=== PATIENT | male | born 1935 | race African-American/Black ===

== ENCOUNTER 2021-03-13 09:15 | Inpatient (IN) | payer MEDICARE, OTHER ==
[~2021-03-13] VITALS: Ht 175.3 cm; Wt 91.2 kg
[~2021-03-13 09:15] MED LIST: ASPI-1497 PO; ATEN50TA PO; GLYPIZIDE PO; LOSA50TA41 PO; METF-414 PO; RANI150T7 PO; REPA0.5T5 PO; hctz PO; mvi PO
[2021-03-13 10:23] LABS: BASOPHILS % 0.4 % (0.0-2.0); EOSINOPHILS % 3.8 % (0.0-5.0); HEMATOCRIT. 39.2 % (42.0-52.0); LYMPHOCYTES % 31.8 % (20.0-50.0); MEAN CORPUSCULAR HEMOGLOBIN 29.3 pg (28.0-32.0); MEAN CORPUSCULAR VOLUME 88.4 fL (80.0-94.0); MEAN PLATELET VOLUME 7.6 fl (7.4-10.4); MONOCYTES % 11.2 % (2.0-8.0); NEUTROPHILS % 52.8 % (40.0-76.0); PLATELET 186 x1000/uL (130-400); RED BLOOD CELL COUNT 4.44 mill/uL (4.7-6.1); RED CELL DISTRIBUTION WIDTH 15.6 % (11.6-14.6)
[2021-03-13 10:31] LABS: CHLORIDE 106 mEq/L (98-107)
[2021-03-13 10:32] LABS: PROTHROMBIN TIME 10.4 sec (9.6-11.0)
[2021-03-13 10:35] LABS: ETHANOL BLOOD < 10 mg/dL
[2021-03-13 10:38] LABS: LDL CHOLESTEROL 76 mg/dL (5-100)
[2021-03-13 10:51] LABS: CREATINE KINASE 3532 IU/L (39-308)
[2021-03-13] MEDS ORDERED: IOHEXOL-350 100 ML BOTTLE ONE (10:54)
[2021-03-13] MEDS ORDERED: SODIUM CHLORIDE 0.9% 1,000 ML IV ONE (11:00)
[2021-03-13] MEDS: ASPIRIN 325MG EC TABLET PO NR ×2 (11:17→11:39)
[2021-03-13] MEDS ORDERED: ATORVASTATIN CALCIUM 40MG TABLET PO ONE (11:30)
[2021-03-13 16:00] VITALS: BP 162/90
[2021-03-13 16:15] VITALS: BP 164/92
[2021-03-13 16:46] LABS: CLARITY URINE CLEAR (CLEAR); COLOR URINE YELLOW (YELLOW); KETONES URINE NEGATIVE (NEGATIVE); LEUKOCYTE ESTERASE URINE NEGATIVE (NEGATIVE); NITRITE URINE NEGATIVE (NEGATIVE); OCCULT BLOOD URINE NEGATIVE (NEGATIVE); PH URINE 7.5 (4.5-8.0); PROTEIN URINE NEGATIVE (NEGATIVE)
[2021-03-13 17:03] LABS: *AMPHETAMINES SCREEN URINE NEGATIVE (NEGATIVE); *BARBITURATES SCREEN URINE NEGATIVE (NEGATIVE); *BENZODIAZEPINES SCREEN URINE NEGATIVE (NEGATIVE)
[2021-03-13 17:04] LABS: *COCAINE SCREEN URINE NEGATIVE (NEGATIVE); CANNABINOID URINE SCREEN NEGATIVE (NEGATIVE); METHADONE URINE SCREEN NEGATIVE (NEGATIVE); OPIATES URINE SCREEN NEGATIVE (NEGATIVE); PHENCYCLIDINE URINE SCREEN NEGATIVE (NEGATIVE)
[2021-03-13] MEDS ORDERED: MORPHINE SULFATE 2 MG/ML CPJ (NOT FOR IM USE) IV PRN (17:30)
[2021-03-13] MEDS ORDERED: DIPHENHYDRAMINE 50MG/ML VIAL IV PRN (17:30)
[2021-03-13] MEDS ORDERED: LORAZEPAM 2MG/ML CPJ IV PRN (17:30)
[2021-03-13] MEDS ORDERED: DOCUSATE SODIUM 100MG CAPSULE PO PRN (17:30)
[2021-03-13] MEDS ORDERED: ACETAMINOPHEN 325MG TABLET PO PRN (17:30)
[2021-03-13] MEDS ORDERED: MAGNESIUM/ALUMINUM HYDROXIDE/SIMETHICONE 30ML UDC PO PRN (17:30)
[2021-03-13] MEDS ORDERED: DEXTROSE 50% WATER 50ML SYRINGE IV PRN (17:30)
[2021-03-13] MEDS ORDERED: IPRATROPIUM/ALBUTEROL 0.5-3(2.5)MG/3ML NEB HHN PRN (17:30)
[2021-03-13] MEDS ORDERED: GUAIFENESIN 200MG/10ML SUGAR FREE UDC PO PRN (17:30)
[2021-03-13] MEDS ORDERED: ONDANSETRON HCL 4MG/2ML INJ IV PRN (17:30)
[2021-03-13] MEDS ORDERED: HYDROCODONE/ACETAMINOPHEN 5/325MG TABLET PO PRN (17:30)
[2021-03-13] MEDS: INSULIN LISPRO 100 UNITS/ML SUBCUT SCH ×2 (17:40→20:26)
[2021-03-13] MEDS: HYDRALAZINE 20MG/ML VIAL IV PRN (18:03)
[2021-03-13] MEDS: ENOXAPARIN 40MG/0.4ML SYR SUBCUT SCH (18:06)
[2021-03-13] MEDS: BLOOD SUGAR DIAGNOSTIC STRIP TEST SCH ×2 (18:13→20:24)
[2021-03-13] MEDS: DEXT 5%/0.45% NACL 1000ML 1,000 ML IV SCH (19:38)
[2021-03-13 20:00] VITALS: BP 112/76
[2021-03-13] MEDS ORDERED: ENOXAPARIN 40MG/0.4ML SYR SUBCUT SCH (20:00)
[2021-03-13] MEDS: ASPIRIN 81MG TABLET PO SCH (20:24)
[2021-03-13] MEDS: ATORVASTATIN CALCIUM 20MG TABLET PO SCH (20:24)
[2021-03-13] MEDS: SODIUM CHLORIDE 0.9% INJ 3ML FLUSH IVF SCH (20:26)
[2021-03-13] MEDS ORDERED: ATORVASTATIN CALCIUM 40MG TABLET PO SCH (21:00)
[2021-03-14] VITALS: BP 136/73
[2021-03-14 00:52] LABS: CREATINE KINASE MB FRACTION 6.1 ng/mL (0.5-3.6)
[2021-03-14 01:02] LABS: CREATINE KINASE 3546 IU/L (39-308)
[2021-03-14 04:00] VITALS: BP 139/89
[2021-03-14] MEDS: SODIUM CHLORIDE 0.9% INJ 3ML FLUSH IVF SCH ×3 (05:22→22:00)
[2021-03-14] MEDS: BLOOD SUGAR DIAGNOSTIC STRIP TEST SCH ×4 (05:24→20:02)
[2021-03-14] MEDS: INSULIN LISPRO 100 UNITS/ML SUBCUT SCH ×4 (05:24→21:28)
[2021-03-14 07:08] LABS: BASOPHILS % 0.4 % (0.0-2.0); EOSINOPHILS % 1.3 % (0.0-5.0); HEMATOCRIT. 44.2 % (42.0-52.0); HEMOGLOBIN. 14.4 g/dL (14.0-18.0); LYMPHOCYTES % 23.9 % (20.0-50.0); MEAN CORPUSCULAR HEMOGLOBIN 28.7 pg (28.0-32.0); MEAN PLATELET VOLUME 8.4 fl (7.4-10.4); NEUTROPHILS % 63.4 % (40.0-76.0); PLATELET 190 x1000/uL (130-400); RED BLOOD CELL COUNT 5.02 mill/uL (4.7-6.1); RED CELL DISTRIBUTION WIDTH 15.3 % (11.6-14.6)
[2021-03-14 07:22] LABS: CHLORIDE 104 mEq/L (98-107)
[2021-03-14 07:38] LABS: LDL CHOLESTEROL 79 mg/dL (5-100)
[2021-03-14 07:47] LABS: CREATINE KINASE MB FRACTION 5.7 ng/mL (0.5-3.6)
[2021-03-14 07:48] LABS: HDL CHOLESTEROL 88 mg/dL (40-59)
[2021-03-14 07:51] LABS: CREATINE KINASE 3394 IU/L (39-308)
[2021-03-14 08:00] VITALS: BP 141/86
[2021-03-14] MEDS: ASPIRIN 81MG TABLET PO SCH (08:42)
[2021-03-14 12:00] VITALS: BP 133/68
[2021-03-14 16:00] VITALS: BP 166/91
[2021-03-14] MEDS: DEXT 5%/0.45% NACL 1000ML 1,000 ML IV SCH ×3 (17:30→19:51)
[2021-03-14] MEDS: CLONIDINE 0.1MG TABLET PO PRN (17:56)
[2021-03-14] MEDS: ENOXAPARIN 40MG/0.4ML SYR SUBCUT SCH (17:56)
[2021-03-14 20:00] VITALS: BP 127/80
[2021-03-14] MEDS: ATORVASTATIN CALCIUM 20MG TABLET PO SCH (21:28)
[2021-03-15] VITALS: BP 130/66
[2021-03-15 04:00] VITALS: BP 130/60
[2021-03-15] MEDS: SODIUM CHLORIDE 0.9% INJ 3ML FLUSH IVF SCH ×3 (05:23→20:27)
[2021-03-15] MEDS: BLOOD SUGAR DIAGNOSTIC STRIP TEST SCH ×4 (05:26→20:26)
[2021-03-15] MEDS: INSULIN LISPRO 100 UNITS/ML SUBCUT SCH ×4 (05:51→20:26)
[2021-03-15 06:11] LABS: CHLORIDE 107 mEq/L (98-107)
[2021-03-15 06:34] LABS: CREATINE KINASE 1493 IU/L (39-308)
[2021-03-15] MEDS ORDERED: LIDOCAINE HCL 1% 20ML VIAL (Pyxis) INJ ONE (08:11)
[2021-03-15 08:20] LABS: BASOPHILS % 0.5 % (0.0-2.0); EOSINOPHILS % 4.6 % (0.0-5.0); HEMATOCRIT. 38.1 % (42.0-52.0); HEMOGLOBIN. 12.6 g/dL (14.0-18.0); LYMPHOCYTES % 34.3 % (20.0-50.0); MEAN CORPUSCULAR HEMOGLOBIN 28.9 pg (28.0-32.0); MEAN CORPUSCULAR VOLUME 87.7 fL (80.0-94.0); MEAN PLATELET VOLUME 8.2 fl (7.4-10.4); MONOCYTES % 13.5 % (2.0-8.0); NEUTROPHILS % 47.1 % (40.0-76.0); PLATELET 182 x1000/uL (130-400); RED BLOOD CELL COUNT 4.34 mill/uL (4.7-6.1); RED CELL DISTRIBUTION WIDTH 15.5 % (11.6-14.6)
[2021-03-15] MEDS: ASPIRIN 81MG TABLET PO SCH (09:54)
[2021-03-15] MEDS: ENOXAPARIN 40MG/0.4ML SYR SUBCUT SCH (18:36)
[2021-03-15 20:00] VITALS: BP 126/76
[2021-03-15] MEDS: ATORVASTATIN CALCIUM 20MG TABLET PO SCH (20:26)
[2021-03-16] VITALS: BP 127/70
[2021-03-16] MEDS: SODIUM CHLORIDE 0.9% INJ 3ML FLUSH IVF SCH (06:00)
[2021-03-16 06:47] LABS: CHLORIDE 108 mEq/L (98-107)
[2021-03-16 07:06] LABS: BASOPHILS % 0.4 % (0.0-2.0); EOSINOPHILS % 5.3 % (0.0-5.0); HEMATOCRIT. 40.6 % (42.0-52.0); HEMOGLOBIN. 13.3 g/dL (14.0-18.0); LYMPHOCYTES % 26.8 % (20.0-50.0); MEAN CORPUSCULAR HEMOGLOBIN 28.4 pg (28.0-32.0); MEAN PLATELET VOLUME 7.7 fl (7.4-10.4); NEUTROPHILS % 54.5 % (40.0-76.0); PLATELET 195 x1000/uL (130-400); RED BLOOD CELL COUNT 4.67 mill/uL (4.7-6.1); RED CELL DISTRIBUTION WIDTH 15.5 % (11.6-14.6)
[2021-03-16] MEDS: INSULIN LISPRO 100 UNITS/ML SUBCUT SCH ×4 (07:40→20:52)
[2021-03-16] MEDS: BLOOD SUGAR DIAGNOSTIC STRIP TEST SCH ×4 (07:43→20:43)
[2021-03-16 08:00] VITALS: BP 148/83
[2021-03-16] MEDS: ASPIRIN 81MG TABLET PO SCH (09:56)
[2021-03-16] MEDS: ENOXAPARIN 30MG/0.3ML SYR SUBCUT SCH ×2 (09:57→20:42)
[2021-03-16 12:00] VITALS: BP 137/87
[2021-03-16 16:00] VITALS: BP 170/100
[2021-03-16] MEDS: DEXT 5%/0.45% NACL 1000ML 1,000 ML IV SCH (17:30)
[2021-03-16] MEDS: CLOPIDOGREL 75MG TABLET PO SCH (18:22)
[2021-03-16] MEDS: CLONIDINE 0.1MG TABLET PO PRN (18:22)
[2021-03-16 20:00] VITALS: BP 175/100
[2021-03-16] MEDS: ATORVASTATIN CALCIUM 20MG TABLET PO SCH (20:41)
[2021-03-16] MEDS: HYDRALAZINE 20MG/ML VIAL IV PRN (22:32)
[2021-03-17] VITALS: BP 140/82
[2021-03-17 04:00] VITALS: BP 151/89
[2021-03-17] MEDS: SODIUM CHLORIDE 0.9% INJ 3ML FLUSH IVF SCH ×3 (06:00→21:30)
[2021-03-17] MEDS: BLOOD SUGAR DIAGNOSTIC STRIP TEST SCH ×3 (07:10→21:29)
[2021-03-17 08:00] VITALS: BP 147/75
[2021-03-17] MEDS: INSULIN LISPRO 100 UNITS/ML SUBCUT SCH ×4 (09:08→21:31)
[2021-03-17] MEDS: CLOPIDOGREL 75MG TABLET PO SCH (09:09)
[2021-03-17] MEDS: ENOXAPARIN 30MG/0.3ML SYR SUBCUT SCH ×2 (09:09→21:30)
[2021-03-17 12:00] VITALS: BP 159/82
[2021-03-17 16:00] VITALS: BP 137/77
[2021-03-17 20:00] VITALS: BP 158/84
[2021-03-17] MEDS: ATORVASTATIN CALCIUM 20MG TABLET PO SCH (21:29)
[2021-03-17] MEDS: METOPROLOL TARTRATE 25MG TABLET PO SCH (21:30)
[2021-03-18] VITALS: BP 151/85
[2021-03-18] MEDS: DEXT 5%/0.45% NACL 1000ML 1,000 ML IV SCH ×2 (03:07→18:43)
[2021-03-18 04:00] VITALS: BP 162/78
[2021-03-18 06:04] LABS: BASOPHILS % 0.6 % (0.0-2.0); EOSINOPHILS % 7.6 % (0.0-5.0); HEMATOCRIT. 45.4 % (42.0-52.0); HEMOGLOBIN. 14.7 g/dL (14.0-18.0); LYMPHOCYTES % 34.7 % (20.0-50.0); MEAN CORPUSCULAR HEMOGLOBIN 28.8 pg (28.0-32.0); MEAN CORPUSCULAR VOLUME 88.8 fL (80.0-94.0); MEAN PLATELET VOLUME 7.8 fl (7.4-10.4); MONOCYTES % 11.3 % (2.0-8.0); NEUTROPHILS % 45.8 % (40.0-76.0); PLATELET 202 x1000/uL (130-400); RED BLOOD CELL COUNT 5.11 mill/uL (4.7-6.1); RED CELL DISTRIBUTION WIDTH 15.8 % (11.6-14.6)
[2021-03-18] MEDS: SODIUM CHLORIDE 0.9% INJ 3ML FLUSH IVF SCH ×3 (06:08→21:12)
[2021-03-18] MEDS: BLOOD SUGAR DIAGNOSTIC STRIP TEST SCH ×4 (06:09→21:05)
[2021-03-18] MEDS: INSULIN LISPRO 100 UNITS/ML SUBCUT SCH ×4 (06:09→21:05)
[2021-03-18 06:30] LABS: CHLORIDE 106 mEq/L (98-107)
[2021-03-18] MEDS: CLOPIDOGREL 75MG TABLET PO SCH (09:33)
[2021-03-18] MEDS: METOPROLOL TARTRATE 25MG TABLET PO SCH ×2 (09:34→21:04)
[2021-03-18] MEDS: ENOXAPARIN 30MG/0.3ML SYR SUBCUT SCH ×2 (09:34→21:04)
[2021-03-18 12:00] VITALS: BP 149/78
[2021-03-18 16:00] VITALS: BP 124/81
[2021-03-18] MEDS ORDERED: CLOP75TA15 PO (18:56)
[2021-03-18 18:59] VITALS: BP 124/81
[2021-03-18 20:00] VITALS: BP 150/89
[2021-03-18] MEDS: ATORVASTATIN CALCIUM 20MG TABLET PO SCH (21:03)
[2021-03-19] VITALS: BP 152/70
[2021-03-19 04:00] VITALS: BP 150/89
[2021-03-19] MEDS: SODIUM CHLORIDE 0.9% INJ 3ML FLUSH IVF SCH ×2 (05:59→14:00)
[2021-03-19] MEDS: INSULIN LISPRO 100 UNITS/ML SUBCUT SCH ×3 (06:18→17:40)
[2021-03-19] MEDS: BLOOD SUGAR DIAGNOSTIC STRIP TEST SCH ×3 (06:18→17:10)
[2021-03-19 08:00] VITALS: BP 152/97
[2021-03-19] MEDS: CLOPIDOGREL 75MG TABLET PO SCH (08:42)
[2021-03-19] MEDS: METOPROLOL TARTRATE 25MG TABLET PO SCH (08:42)
[2021-03-19] MEDS: ENOXAPARIN 30MG/0.3ML SYR SUBCUT SCH (08:42)
[2021-03-20] MEDS ORDERED: ENOXAPARIN 40MG/0.4ML SYR SUBCUT SCH (09:00)
== END 2021-03-19 18:00 | DRG 64 ==
LOC: ER 09:15 → 8WST 12:02 → EDBEDREQ 12:12 → EDBEDREQSVC 12:12 → EDBEDREQTM 12:12 → ENRESERV 13:12
PROVIDERS: ADMIT Internal Medicine; ATTEND Internal Medicine
PROC: 4A10X4Z Monitoring of Central Nervous Electrical Activity, External Approach (ICD-10-PCS; principal; 2021-03-14)
PROC: 05HY33Z Insertion of Infusion Device into Upper Vein, Percutaneous Approach (ICD-10-PCS; 2021-03-15)
PROC: B54MZZA Ultrasonography of Right Upper Extremity Veins, Guidance (ICD-10-PCS; 2021-03-15)
DX: I63.9 Cerebral infarction, unspecified (principal); J96.00 Acute respiratory failure, unspecified whether with hypoxia or hypercapnia; M62.82 Rhabdomyolysis; F03.90 Unspecified dementia, unspecified severity, without behavioral disturbance, psychotic disturbance, mood disturbance, and anxiety; E11.22 Type 2 diabetes mellitus with diabetic chronic kidney disease; N18.9 Chronic kidney disease, unspecified; I12.9 Hypertensive chronic kidney disease with stage 1 through stage 4 chronic kidney disease, or unspecified chronic kidney disease; E66.01 Morbid (severe) obesity due to excess calories; E87.5 Hyperkalemia; G89.29 Other chronic pain; R29.810 Facial weakness; C61 Malignant neoplasm of prostate; Z85.46 Personal history of malignant neoplasm of prostate; Z79.82 Long term (current) use of aspirin; Z79.899 Other long term (current) drug therapy; Z82.49 Family history of ischemic heart disease and other diseases of the circulatory system; Z68.29 Body mass index [BMI] 29.0-29.9, adult; W06.XXXA Fall from bed, initial encounter; Y92.009 Unspecified place in unspecified non-institutional (private) residence as the place of occurrence of the external cause
CPT/HCPCS: 36415; 36573; 70496; 70498; 70551; 71045; 80048; 80053; 80061; 80305; 80320; 81003; 82140; 82550; 82553; 82962; 83036; 83721; 83880; 84443; 84484; 85025; 92610; 93005; 93306; 93970; 95816; 97112; 97162; 97166; 97530; 97535; 99291; C1725; C1893; J0360; J1650; J1815; J3490; Q9967; G0480

== ENCOUNTER 2021-05-15 08:48 | Emergency (ER) | payer SELFPAY ==
[~2021-05-15] VITALS: Ht 172.7 cm; Wt 86.0 kg
[2021-05-15 09:41] LABS: BASOPHILS % 0.6 % (0.0-2.0); EOSINOPHILS % 0.9 % (0.0-5.0); HEMATOCRIT. 38.6 % (42.0-52.0); HEMOGLOBIN. 12.7 g/dL (14.0-18.0); MEAN CORPUSCULAR HEMOGLOBIN 28.2 pg (28.0-32.0); MEAN CORPUSCULAR VOLUME 85.8 fL (80.0-94.0); MEAN PLATELET VOLUME 6.9 fl (7.4-10.4); MONOCYTES % 7.1 % (2.0-8.0); NEUTROPHILS % 78.4 % (40.0-76.0); PLATELET 235 x1000/uL (130-400); RED CELL DISTRIBUTION WIDTH 15.2 % (11.6-14.6)
[2021-05-15 09:50] LABS: CHLORIDE 108 mEq/L (98-107)
[2021-05-15] MEDS ORDERED: DEXTROSE 50% WATER 50ML SYRINGE IV ONE (10:00)
[2021-05-15 10:18] LABS: CLARITY URINE CLEAR (CLEAR); COLOR URINE YELLOW (YELLOW); KETONES URINE NEGATIVE (NEGATIVE); LEUKOCYTE ESTERASE URINE NEGATIVE (NEGATIVE); NITRITE URINE NEGATIVE (NEGATIVE); OCCULT BLOOD URINE NEGATIVE (NEGATIVE); PROTEIN URINE NEGATIVE (NEGATIVE); SPECIFIC GRAVITY URINE 1.004 (1.005-1.030); UROBILINOGEN URINE 0.2 E.U./dL (0.2-1.0)
[2021-05-15] MEDS ORDERED: CLONIDINE 0.1MG TABLET PO ONE (11:30)
[2021-05-15] MEDS ORDERED: ALBU90AE INH (12:17)
[2021-05-15 13:55] VITALS: BP 162/88
== END 2021-05-15 14:05 | disposition home or self-care (01) ==
LOC: ER 08:48
DX: E11.649 Type 2 diabetes mellitus with hypoglycemia without coma (principal); J40 Bronchitis, not specified as acute or chronic; I10 Essential (primary) hypertension; F03.90 Unspecified dementia, unspecified severity, without behavioral disturbance, psychotic disturbance, mood disturbance, and anxiety; I69.351 Hemiplegia and hemiparesis following cerebral infarction affecting right dominant side; Z79.84 Long term (current) use of oral hypoglycemic drugs; Z79.82 Long term (current) use of aspirin
CPT/HCPCS: 36415; 71045; 80053; 81003; 82962; 83880; 84484; 85025; 93005; 96374; 99285; A4315

== ENCOUNTER 2021-09-20 11:19 | Inpatient (IN) | payer MEDICARE, OTHER ==
[~2021-09-20] VITALS: Ht 175.3 cm; Wt 68.1 kg
[~2021-09-20 11:19] MED LIST changes: +ALBU90AE INH
[2021-09-20 12:36] LABS: HEMATOCRIT. 39.1 % (42.0-52.0); HEMOGLOBIN. 12.4 g/dL (14.0-18.0); MEAN CORPUSCULAR HEMOGLOBIN 27.3 pg (28.0-32.0); MEAN CORPUSCULAR VOLUME 86.2 fL (80.0-94.0); MEAN PLATELET VOLUME 7.3 fl (7.4-10.4); PLATELET 216 x1000/uL (130-400); RED BLOOD CELL COUNT 4.54 mill/uL (4.7-6.1); RED CELL DISTRIBUTION WIDTH 15.9 % (11.6-14.6)
[2021-09-20 12:42] LABS: CHLORIDE 103 mEq/L (98-107)
[2021-09-20 12:45] LABS: INR 1.1; PROTHROMBIN TIME 11.3 sec (9.6-11.0)
[2021-09-20 12:46] LABS: ETHANOL BLOOD < 10 mg/dL
[2021-09-20 12:49] LABS: LDL CHOLESTEROL 34 mg/dL (5-100)
[2021-09-20 13:12] LABS: PLATELET ESTIMATE NORMAL
[2021-09-20] MEDS ORDERED: IOHEXOL-350 100 ML BOTTLE ONE (13:57)
[2021-09-20] MEDS ORDERED: ONDANSETRON HCL 4MG/2ML INJ IV PRN (16:45)
[2021-09-20] MEDS ORDERED: DIPHENHYDRAMINE 50MG/ML VIAL IV PRN (16:45)
[2021-09-20] MEDS ORDERED: IPRATROPIUM/ALBUTEROL 0.5-3(2.5)MG/3ML NEB HHN PRN (16:45)
[2021-09-20] MEDS: SODIUM CHLORIDE 0.9% 1,000 ML IV SCH (16:45)
[2021-09-20 23:45] VITALS: BP 161/84
[2021-09-21] VITALS (7 sets, daily range): BP systolic 112–166; BP diastolic 71–93
[2021-09-21] MEDS ORDERED: CLOP75TA33 PO (00:11)
[2021-09-21] MEDS ORDERED: AMLO5TAB88 PO (00:11)
[2021-09-21] MEDS ORDERED: MEMA10TA55 PO (00:11)
[2021-09-21] MEDS ORDERED: ATOR20TA65 PO (00:11)
[2021-09-21] MEDS ORDERED: DEXTROSE 50% WATER 50ML SYRINGE IV PRN (01:30)
[2021-09-21] MEDS: CLONIDINE 0.1MG TABLET PO PRN (05:08)
[2021-09-21] MEDS: SODIUM CHLORIDE 0.9% 1,000 ML IV SCH ×2 (05:08→21:11)
[2021-09-21] MEDS: BLOOD SUGAR DIAGNOSTIC STRIP TEST SCH ×4 (05:57→21:00)
[2021-09-21] MEDS: INSULIN LISPRO 100 UNITS/ML SUBCUT SCH ×4 (06:43→23:16)
[2021-09-21 07:09] LABS: BASOPHILS % 0.3 % (0.0-2.0); HEMATOCRIT. 36.3 % (42.0-52.0); HEMOGLOBIN. 11.7 g/dL (14.0-18.0); LYMPHOCYTES % 8.4 % (20.0-50.0); MEAN CORPUSCULAR HEMOGLOBIN 27.9 pg (28.0-32.0); MEAN CORPUSCULAR VOLUME 86.4 fL (80.0-94.0); MEAN PLATELET VOLUME 7.7 fl (7.4-10.4); MONOCYTES % 6.8 % (2.0-8.0); NEUTROPHILS % 84.5 % (40.0-76.0); PLATELET 214 x1000/uL (130-400); RED CELL DISTRIBUTION WIDTH 15.6 % (11.6-14.6)
[2021-09-21 07:21] LABS: CHLORIDE 104 mEq/L (98-107)
[2021-09-21 07:45] LABS: HDL CHOLESTEROL 76 mg/dL (40-59); LDL CHOLESTEROL 25 mg/dL (5-100)
[2021-09-22] VITALS: BP 115/74
[2021-09-22 00:54] LABS: T4 FREE 1.09 ng/dL (0.76-1.46)
[2021-09-22 01:10] LABS: VITAMIN B12 SERUM 867 pg/mL (211-911)
[2021-09-22 01:16] LABS: FOLIC ACID (FOLATE) SERUM > 20.00 ng/mL (>5.38)
[2021-09-22 04:00] VITALS: BP 149/80
[2021-09-22 06:30] LABS: BASOPHILS % 0.1 % (0.0-2.0); EOSINOPHILS % 0.1 % (0.0-5.0); HEMATOCRIT. 36.4 % (42.0-52.0); HEMOGLOBIN. 11.6 g/dL (14.0-18.0); LYMPHOCYTES % 8.7 % (20.0-50.0); MEAN CORPUSCULAR HEMOGLOBIN 27.6 pg (28.0-32.0); MEAN CORPUSCULAR VOLUME 86.7 fL (80.0-94.0); MONOCYTES % 4.6 % (2.0-8.0); NEUTROPHILS % 86.5 % (40.0-76.0); RED CELL DISTRIBUTION WIDTH 16.3 % (11.6-14.6)
[2021-09-22] MEDS: BLOOD SUGAR DIAGNOSTIC STRIP TEST SCH ×4 (06:37→21:15)
[2021-09-22] MEDS: INSULIN LISPRO 100 UNITS/ML SUBCUT SCH ×4 (06:37→21:15)
[2021-09-22 07:02] LABS: CHLORIDE 110 mEq/L (98-107)
[2021-09-22 08:00] VITALS: BP 156/84
[2021-09-22] MEDS: CLOPIDOGREL 75MG TABLET PO SCH (09:24)
[2021-09-22 10:35] LABS: PLATELET 186 x1000/uL (130-400)
[2021-09-22] MEDS: SODIUM CHLORIDE 0.9% 1,000 ML IV SCH (10:46)
[2021-09-22 16:00] VITALS: BP 130/67
[2021-09-22 20:00] VITALS: BP 108/63
[2021-09-23] VITALS: BP 113/70
[2021-09-23 04:00] VITALS: BP 136/81
[2021-09-23] MEDS: SODIUM CHLORIDE 0.9% 1,000 ML IV SCH ×2 (04:32→12:20)
[2021-09-23] MEDS: BLOOD SUGAR DIAGNOSTIC STRIP TEST SCH ×4 (05:53→21:15)
[2021-09-23] MEDS: INSULIN LISPRO 100 UNITS/ML SUBCUT SCH ×4 (05:55→21:16)
[2021-09-23 08:00] VITALS: BP 136/76
[2021-09-23] MEDS: CLOPIDOGREL 75MG TABLET PO SCH (08:49)
[2021-09-23] MEDS: ACETAMINOPHEN 325MG TABLET PO PRN ×2 (09:47→21:15)
[2021-09-23 12:00] VITALS: BP_SYST 122; BP_SYST 171; BP_DIAS 66; BP_DIAS 84
[2021-09-23 16:00] VITALS: BP 145/70
[2021-09-23 20:00] VITALS: BP 113/80
[2021-09-24] VITALS (7 sets, daily range): BP systolic 133–165; BP diastolic 70–91
[2021-09-24] MEDS: BLOOD SUGAR DIAGNOSTIC STRIP TEST SCH ×4 (06:33→20:53)
[2021-09-24] MEDS: CLONIDINE 0.1MG TABLET PO PRN ×2 (06:35→18:22)
[2021-09-24] MEDS: INSULIN LISPRO 100 UNITS/ML SUBCUT SCH ×5 (06:36→20:58)
[2021-09-24 07:54] LABS: CREATINE KINASE 621 IU/L (39-308)
[2021-09-24] MEDS: THIAMINE HCL 100MG TABLET PO SCH (08:57)
[2021-09-24] MEDS: CLOPIDOGREL 75MG TABLET PO SCH (08:57)
[2021-09-24] MEDS: FOLIC ACID 1MG TABLET PO SCH (08:57)
[2021-09-24] MEDS: LACTULOSE 20G/30ML UDC PO SCH ×2 (14:03→20:53)
[2021-09-24] MEDS ORDERED: BARIUM SULFATE 176 GM SUSP.RECON ONE (14:10)
[2021-09-24] MEDS: ACETAMINOPHEN 325MG TABLET PO PRN (18:22)
[2021-09-24] MEDS: CEFTRIAXONE 1,000 MG in DEXTROSE 5% WATER 50 ML IV SCH (20:53)
[2021-09-25] VITALS: BP 164/71
[2021-09-25 04:00] VITALS: BP 157/75
[2021-09-25] MEDS: CLONIDINE 0.1MG TABLET PO PRN (04:41)
[2021-09-25 05:31] LABS: CLARITY URINE TURBID (CLEAR); COLOR URINE YELLOW (YELLOW); KETONES URINE TRACE (NEGATIVE); LEUKOCYTE ESTERASE URINE 3+ (NEGATIVE); NITRITE URINE POSITIVE (NEGATIVE); OCCULT BLOOD URINE 2+ (NEGATIVE); PROTEIN URINE 1+ (NEGATIVE); SPECIFIC GRAVITY URINE 1.013 (1.005-1.030)
[2021-09-25] MEDS: LACTULOSE 20G/30ML UDC PO SCH ×2 (06:07→14:14)
[2021-09-25] MEDS: BLOOD SUGAR DIAGNOSTIC STRIP TEST SCH ×4 (06:07→20:43)
[2021-09-25 07:43] LABS: CHLORIDE 111 mEq/L (98-107)
[2021-09-25 07:51] LABS: CREATINE KINASE 309 IU/L (39-308)
[2021-09-25 08:00] VITALS: BP 146/70
[2021-09-25] MEDS: FOLIC ACID 1MG TABLET PO SCH (08:20)
[2021-09-25] MEDS: THIAMINE HCL 100MG TABLET PO SCH (08:21)
[2021-09-25] MEDS: CLOPIDOGREL 75MG TABLET PO SCH (08:21)
[2021-09-25] MEDS: INSULIN LISPRO 100 UNITS/ML SUBCUT SCH ×4 (08:52→20:58)
[2021-09-25 12:00] VITALS: BP 133/76
[2021-09-25 16:00] VITALS: BP 109/76
[2021-09-25] MEDS: CEFTRIAXONE 1,000 MG in DEXTROSE 5% WATER 50 ML IV SCH (18:20)
[2021-09-25 20:00] VITALS: BP 109/61
[2021-09-26] VITALS: BP 128/60
[2021-09-26 04:00] VITALS: BP 123/75
[2021-09-26] MEDS: BLOOD SUGAR DIAGNOSTIC STRIP TEST SCH ×4 (06:40→21:00)
[2021-09-26 07:18] LABS: HEMOGLOBIN. 11.2 g/dL (14.0-18.0); MEAN CORPUSCULAR VOLUME 84.4 fL (80.0-94.0); MEAN PLATELET VOLUME 8.4 fl (7.4-10.4); PLATELET 204 x1000/uL (130-400); RED BLOOD CELL COUNT 4.15 mill/uL (4.7-6.1)
[2021-09-26 08:00] VITALS: BP 97/58
[2021-09-26 08:07] LABS: CHLORIDE 110 mEq/L (98-107)
[2021-09-26 08:17] LABS: CREATINE KINASE 156 IU/L (39-308)
[2021-09-26] MEDS ORDERED: LACTULOSE 20G/30ML UDC PO SCH (09:00)
[2021-09-26] MEDS: CLOPIDOGREL 75MG TABLET PO SCH (09:03)
[2021-09-26] MEDS: THIAMINE HCL 100MG TABLET PO SCH (09:03)
[2021-09-26] MEDS: FOLIC ACID 1MG TABLET PO SCH (09:03)
[2021-09-26] MEDS: INSULIN LISPRO 100 UNITS/ML SUBCUT SCH ×4 (09:14→21:00)
[2021-09-26 20:00] VITALS: BP 148/79
[2021-09-27] VITALS: BP 147/83
[2021-09-27 04:00] VITALS: BP 154/86
[2021-09-27] MEDS: BLOOD SUGAR DIAGNOSTIC STRIP TEST SCH ×4 (06:20→21:33)
[2021-09-27] MEDS: INSULIN LISPRO 100 UNITS/ML SUBCUT SCH ×4 (07:50→21:35)
[2021-09-27 08:00] VITALS: BP 148/73
[2021-09-27] MEDS: CLOPIDOGREL 75MG TABLET PO SCH (08:53)
[2021-09-27] MEDS: FOLIC ACID 1MG TABLET PO SCH (08:53)
[2021-09-27] MEDS: THIAMINE HCL 100MG TABLET PO SCH (08:53)
[2021-09-27 12:00] VITALS: BP 152/76
[2021-09-27 14:35] LABS: PLATELET ESTIMATE NORMAL
[2021-09-27 16:00] VITALS: BP 159/80
[2021-09-27] MEDS: CEFTRIAXONE 1,000 MG in DEXTROSE 5% WATER 50 ML IV SCH (18:22)
[2021-09-27 20:00] VITALS: BP 154/76
[2021-09-28 00:21] VITALS: BP 163/72
[2021-09-28 04:25] VITALS: BP 123/81
[2021-09-28 05:12] LABS: BASOPHILS % 0.3 % (0.0-2.0); EOSINOPHILS % 2.8 % (0.0-5.0); HEMOGLOBIN. 11.2 g/dL (14.0-18.0); LYMPHOCYTES % 22.6 % (20.0-50.0); MEAN CORPUSCULAR HEMOGLOBIN 26.9 pg (28.0-32.0); MEAN CORPUSCULAR VOLUME 84.3 fL (80.0-94.0); MEAN PLATELET VOLUME 8.5 fl (7.4-10.4); MONOCYTES % 9.5 % (2.0-8.0); NEUTROPHILS % 64.8 % (40.0-76.0); PLATELET 251 x1000/uL (130-400); RED BLOOD CELL COUNT 4.15 mill/uL (4.7-6.1); RED CELL DISTRIBUTION WIDTH 16.2 % (11.6-14.6)
[2021-09-28 05:17] LABS: CHLORIDE 109 mEq/L (98-107)
[2021-09-28] MEDS: BLOOD SUGAR DIAGNOSTIC STRIP TEST SCH ×3 (07:21→21:26)
[2021-09-28] MEDS: INSULIN LISPRO 100 UNITS/ML SUBCUT SCH ×3 (07:50→22:26)
[2021-09-28 08:00] VITALS: BP 166/87
[2021-09-28] MEDS: FOLIC ACID 1MG TABLET PO SCH (08:30)
[2021-09-28] MEDS: THIAMINE HCL 100MG TABLET PO SCH (08:30)
[2021-09-28] MEDS: CLOPIDOGREL 75MG TABLET PO SCH (08:30)
[2021-09-28] MEDS: CLONIDINE 0.1MG TABLET PO PRN (09:23)
[2021-09-28 12:00] VITALS: BP 114/69
[2021-09-28] MEDS ORDERED: POTASSIUM CHLORIDE 20MEQ TABLET SR PO NR (15:30)
[2021-09-28 16:00] VITALS: BP 106/67
[2021-09-28 20:00] VITALS: BP 118/64
[2021-09-28] MEDS: CEFTRIAXONE 1,000 MG in DEXTROSE 5% WATER 50 ML IV SCH (21:26)
[2021-09-29 00:09] VITALS: BP 140/72
[2021-09-29 04:00] VITALS: BP 140/86
[2021-09-29] MEDS: BLOOD SUGAR DIAGNOSTIC STRIP TEST SCH ×4 (06:55→21:24)
[2021-09-29 07:08] LABS: BASOPHILS % 0.3 % (0.0-2.0); EOSINOPHILS % 1.7 % (0.0-5.0); HEMATOCRIT. 31.9 % (42.0-52.0); HEMOGLOBIN. 10.3 g/dL (14.0-18.0); LYMPHOCYTES % 21.2 % (20.0-50.0); MEAN CORPUSCULAR HEMOGLOBIN 26.9 pg (28.0-32.0); MEAN CORPUSCULAR VOLUME 83.6 fL (80.0-94.0); MEAN PLATELET VOLUME 8.3 fl (7.4-10.4); MONOCYTES % 6.3 % (2.0-8.0); NEUTROPHILS % 70.5 % (40.0-76.0); PLATELET 300 x1000/uL (130-400); RED BLOOD CELL COUNT 3.81 mill/uL (4.7-6.1); RED CELL DISTRIBUTION WIDTH 16.3 % (11.6-14.6)
[2021-09-29 07:21] LABS: CHLORIDE 109 mEq/L (98-107)
[2021-09-29] MEDS: INSULIN LISPRO 100 UNITS/ML SUBCUT SCH ×4 (07:50→21:25)
[2021-09-29 08:00] VITALS: BP 163/82
[2021-09-29] MEDS: THIAMINE HCL 100MG TABLET PO SCH (09:20)
[2021-09-29] MEDS: FOLIC ACID 1MG TABLET PO SCH (09:21)
[2021-09-29] MEDS: CLOPIDOGREL 75MG TABLET PO SCH (09:21)
[2021-09-29 12:00] VITALS: BP 165/75
[2021-09-29 16:00] VITALS: BP 147/77
[2021-09-29] MEDS: LACTULOSE 20G/30ML UDC PO SCH ×2 (18:02→21:23)
[2021-09-29] MEDS: CEFTRIAXONE 1,000 MG in DEXTROSE 5% WATER 50 ML IV SCH (18:05)
[2021-09-29] MEDS ORDERED: CALCIUM CARBONATE 500MG TABLET CHEW PO NR (19:00)
[2021-09-29] MEDS ORDERED: GUAIFENESIN 200MG TABLET PO PRN (19:00)
[2021-09-29 20:35] VITALS: BP 145/80
[2021-09-29] MEDS: FAMOTIDINE 20MG TABLET PO SCH (21:23)
[2021-09-30] VITALS: BP 146/78
[2021-09-30 04:00] VITALS: BP 159/81
[2021-09-30] MEDS: BLOOD SUGAR DIAGNOSTIC STRIP TEST SCH ×4 (07:36→21:54)
[2021-09-30 08:00] VITALS: BP 128/75
[2021-09-30] MEDS: FOLIC ACID 1MG TABLET PO SCH (08:37)
[2021-09-30] MEDS: FAMOTIDINE 20MG TABLET PO SCH ×2 (08:37→21:53)
[2021-09-30] MEDS: LACTULOSE 20G/30ML UDC PO SCH (08:37)
[2021-09-30] MEDS: CLOPIDOGREL 75MG TABLET PO SCH (08:37)
[2021-09-30] MEDS: THIAMINE HCL 100MG TABLET PO SCH (08:37)
[2021-09-30] MEDS: INSULIN LISPRO 100 UNITS/ML SUBCUT SCH ×4 (08:43→22:01)
[2021-09-30 12:00] VITALS: BP 140/70
[2021-09-30 16:00] VITALS: BP 162/87
[2021-09-30] MEDS: CEFTRIAXONE 1,000 MG in DEXTROSE 5% WATER 50 ML IV SCH (19:00)
[2021-09-30 20:00] VITALS: BP 146/81
[2021-10-01] VITALS: BP 139/87
[2021-10-01 04:00] VITALS: BP 158/84
[2021-10-01] MEDS: INSULIN LISPRO 100 UNITS/ML SUBCUT SCH ×4 (07:50→21:00)
[2021-10-01] MEDS: BLOOD SUGAR DIAGNOSTIC STRIP TEST SCH ×4 (07:54→21:14)
[2021-10-01 08:00] VITALS: BP 156/64
[2021-10-01] MEDS: CLOPIDOGREL 75MG TABLET PO SCH (08:41)
[2021-10-01] MEDS: FOLIC ACID 1MG TABLET PO SCH (08:42)
[2021-10-01] MEDS: FAMOTIDINE 20MG TABLET PO SCH ×2 (08:42→21:48)
[2021-10-01] MEDS: THIAMINE HCL 100MG TABLET PO SCH (08:42)
[2021-10-01 12:00] VITALS: BP 161/88
[2021-10-01 16:00] VITALS: BP 149/101
[2021-10-01 20:00] VITALS: BP 148/91
[2021-10-02] VITALS: BP 155/84
[2021-10-02 04:00] VITALS: BP 182/87
[2021-10-02] MEDS: CLONIDINE 0.1MG TABLET PO PRN (06:03)
[2021-10-02] MEDS: BLOOD SUGAR DIAGNOSTIC STRIP TEST SCH ×4 (06:21→21:50)
[2021-10-02 06:45] LABS: BASOPHILS % 0.4 % (0.0-2.0); EOSINOPHILS % 1.9 % (0.0-5.0); HEMATOCRIT. 33.5 % (42.0-52.0); LYMPHOCYTES % 27.5 % (20.0-50.0); MEAN CORPUSCULAR HEMOGLOBIN 27.5 pg (28.0-32.0); MEAN PLATELET VOLUME 8.2 fl (7.4-10.4); MONOCYTES % 7.4 % (2.0-8.0); NEUTROPHILS % 62.8 % (40.0-76.0); PLATELET 405 x1000/uL (130-400); RED BLOOD CELL COUNT 3.99 mill/uL (4.7-6.1); RED CELL DISTRIBUTION WIDTH 16.1 % (11.6-14.6)
[2021-10-02] MEDS: INSULIN LISPRO 100 UNITS/ML SUBCUT SCH ×4 (06:51→21:52)
[2021-10-02 07:00] LABS: CHLORIDE 106 mEq/L (98-107)
[2021-10-02 08:00] VITALS: BP 148/81
[2021-10-02] MEDS: THIAMINE HCL 100MG TABLET PO SCH (10:05)
[2021-10-02] MEDS: FAMOTIDINE 20MG TABLET PO SCH ×2 (10:06→21:49)
[2021-10-02] MEDS: CLOPIDOGREL 75MG TABLET PO SCH (10:07)
[2021-10-02] MEDS: FOLIC ACID 1MG TABLET PO SCH (10:07)
[2021-10-02 12:00] VITALS: BP 150/85
[2021-10-02 16:00] VITALS: BP 144/78
[2021-10-02 20:00] VITALS: BP 157/72
[2021-10-03] VITALS (7 sets, daily range): BP systolic 136–172; BP diastolic 70–85
[2021-10-03] MEDS: BLOOD SUGAR DIAGNOSTIC STRIP TEST SCH ×4 (05:59→20:31)
[2021-10-03] MEDS: INSULIN LISPRO 100 UNITS/ML SUBCUT SCH ×4 (05:59→20:34)
[2021-10-03] MEDS: FOLIC ACID 1MG TABLET PO SCH (10:23)
[2021-10-03] MEDS: THIAMINE HCL 100MG TABLET PO SCH (10:24)
[2021-10-03] MEDS: FAMOTIDINE 20MG TABLET PO SCH ×2 (10:24→20:31)
[2021-10-03] MEDS: CLOPIDOGREL 75MG TABLET PO SCH (10:24)
== END 2021-10-03 23:53 | DRG 871 ==
LOC: ER 11:26 → EDBEDREQSVC 15:15 → EDBEDREQ 15:15 → ENRESERV 20:51 → 7EST 23:46 → 6EST 09-24 17:37
PROVIDERS: ADMIT Internal Medicine; ATTEND Internal Medicine
DX: A41.9 Sepsis, unspecified organism (principal); G93.41 Metabolic encephalopathy; I69.351 Hemiplegia and hemiparesis following cerebral infarction affecting right dominant side; N39.0 Urinary tract infection, site not specified; M62.82 Rhabdomyolysis; I48.91 Unspecified atrial fibrillation; E11.9 Type 2 diabetes mellitus without complications; F03.90 Unspecified dementia, unspecified severity, without behavioral disturbance, psychotic disturbance, mood disturbance, and anxiety; I10 Essential (primary) hypertension; B96.20 Unspecified Escherichia coli [E. coli] as the cause of diseases classified elsewhere; Z20.822 Contact with and (suspected) exposure to COVID-19; R53.81 Other malaise; R13.10 Dysphagia, unspecified; R47.1 Dysarthria and anarthria; Z82.49 Family history of ischemic heart disease and other diseases of the circulatory system; Z87.891 Personal history of nicotine dependence
CPT/HCPCS: 36415; 70496; 70498; 70551; 71045; 74230; 80048; 80053; 80061; 80320; 81003; 82140; 82550; 82607; 82746; 82962; 83036; 83721; 84145; 84439; 84443; 84481; 84484; 85025; 87077; 87186; 87426; 92523; 92610; 92611; 93005; 93306; 93970; 97112; 97162; 97166; 97530; 99285; J0696; J1815; J7040; J7060; Q9967; G0480